=== PATIENT | female | born 1970 | race Caucasian/White ===

== ENCOUNTER 2020-01-03 08:43 | Outpatient (CLI) | payer BC, SELFPAY ==
[2020-01-03] MEDS: IRON SUCROSE COMPLEX 300 MG in SODIUM CHLORIDE 0.9% IV 250 ML 125 MG IVPB (09:07)
--- NOTE | 2020-01-03 10:12 | PC.NURSE ---
Pt watching TV without complaint. IV infusing without difficulty. present. Reminded to call with needs.
--- NOTE | 2020-01-03 10:42 | PCDIET ---
Pt complains of leg cramps. Up walking in halls with .
== END 2020-01-03 08:44 | disposition home or self-care (01) ==
LOC: CHSTREATRM 08:45
PROVIDERS: PCP Internal Medicine; Visit Provider Internal Medicine
DX: D50.9 Iron deficiency anemia, unspecified (principal)
CPT/HCPCS: 96365; 96366; J1756; J7050

== ENCOUNTER 2020-11-18 09:58 | Outpatient (CLI) | payer BC, SELFPAY ==
[2020-11-18] MEDS: IRON SUCROSE COMPLEX 300 MG in SODIUM CHLORIDE 0.9% IV 235 ML 125 MG IVPB (10:23)
== END 2020-11-18 09:59 | disposition home or self-care (01) ==
PROVIDERS: PCP Internal Medicine; Visit Provider Internal Medicine
DX: D50.9 Iron deficiency anemia, unspecified (principal)
CPT/HCPCS: 96365; 96366; J1756; J7050

== ENCOUNTER 2020-12-03 10:17 | Outpatient (CLI) | payer BC, SELFPAY ==
[2020-12-03] MEDS: IRON SUCROSE COMPLEX 300 MG in SODIUM CHLORIDE 0.9% IV 250 ML 125 MG IV PUSH (10:46)
[2020-12-03 10:52] VITALS: BP 112/60; PULSE 72; RESP 12; TEMP 36.2; O2SAT 97
--- NOTE | 2020-12-03 13:27 | PC.NURSE ---
Patient tolerated #2 of 3 Venofer infusion well. No concerns. #3 Dec 16. Safe exit of hospital.
== END 2020-12-03 10:18 | disposition home or self-care (01) ==
LOC: CHSTREATRM 10:19
PROVIDERS: PCP Internal Medicine; Visit Provider Internal Medicine
DX: D50.9 Iron deficiency anemia, unspecified (principal)
CPT/HCPCS: 96365; 96366; J1756; J7050

== ENCOUNTER 2021-01-05 10:27 | Outpatient (CLI) | payer BC, SELFPAY ==
[2021-01-05] MEDS: IRON SUCROSE COMPLEX 300 MG in SODIUM CHLORIDE 0.9% IV 250 ML 125 MG IVPB (11:00)
[2021-01-05 11:15] VITALS: BP 105/63; PULSE 88; RESP 16; TEMP 36; O2SAT 98
--- NOTE | 2021-01-05 12:55 | PC.NURSE ---
Tolerated #3 IV Venofer infusion well. No concerns about venofer infusion. Safe exit from floor. Going to register for ED r/t knee injury wants look at it from yesterday.
== END 2021-01-05 10:28 | disposition home or self-care (01) ==
LOC: CHSTREATRM 10:28
PROVIDERS: PCP Internal Medicine; Visit Provider Internal Medicine
DX: D50.9 Iron deficiency anemia, unspecified (principal)
CPT/HCPCS: 96365; 96366; J1756; J7050

== ENCOUNTER 2021-01-05 12:52 | Emergency (ER) | payer BC, SELFPAY ==
--- NOTE | ~2021-01-05 | XR_ITS ---
EXAMINATION: XR sacrum coccyx min 2V EXAM DATE: 01/05/2021 14:01 INDICATION: fall 2wks ago causing bilat post hip pain. TECHNIQUE: Frontal, inlet, lateral projections of the sacrum. Correlation made to a prior lumbar x-r ay from 2018, however portion of sacrum was not imaged on that exam. FINDINGS: Possible discontinuity of the sacrum anteriorly at the S4 segment as seen on the lateral pr ojection, possible distal sacral fracture. The sacral arcuate lines to appear intact and the sacroili ac joints are symmetric. IMPRESSION: Possible nondisplaced S4 segment fracture. Reviewed, dictated and finalized at location [facility]. [facility]
--- NOTE | ~2021-01-05 | XR_ITS ---
EXAMINATION: XR knee LT 2V EXAM DATE: 01/05/2021 14:04 INDICATION: Left knee pain ant and post injury. Initial encounter. TECHNIQUE: Frontal and lateral projections of the left knee. There is no prior study for comparison . FINDINGS: There are no acute left knee fractures or dislocations identified. There is no subcutaneou s gas. Small to moderate-sized joint effusion. There are no radiopaque foreign bodies. IMPRESSION: 1. XR knee LT 2V exam without acute osseous findings. 2. Small to moderate joint effusion. Reviewed, dictated and finalized at location [facility]
[2021-01-05 13:33] VITALS: BP 128/59; PULSE 86; RESP 20; TEMP 36.7; O2SAT 98
--- NOTE | 2021-01-05 13:38 | ED.LOWEXIN ---
HPI - Extremity Injury (Lower) General Chief Complaint: Extremity Injury, Lower <SALOMÓN Castañeda - Last Filed: 01/05/21 14:35> Stated Complaint: left knee injury <SALOMÓN Castañeda - Last Filed: 01/05/21 14:35> Source: patient and family <SALOMÓN Castañeda - Last Filed: 01/05/21 14:35> Mode of arrival: ambulatory <SALOMÓN Castañeda - Last Filed: 01/05/21 14:35> Limitations: no limitations <SALOMÓN Castañeda - Last Filed: 01/05/21 14:35> History of Present Illness HPI Narrative: According to patient a couple days ago while sitting on her bed she rolled off the bed and injured her left knee and buttocks. According to patient she has a history of rheumatoid arthritis she also has had a gastric bypass. Patient notes that she did take ibuprofen to try to relieve her pain with no relief. She also has had discomfort in her buttocks area due to her injury . Patient is able to ambulate on her left lower extremity with pain and has limited range of motion due to pain, Patient denies hitting her head, she also denies any lightheaded,vertigo,syncopal episode,or dizziness. She is being evaluated for mechanical fall injury to her knee and coccyx.Patient does get iron infusion at this facility. <SALOMÓN Castañeda - Last Filed: 01/05/21 14:35> MD complaint: knee injury (Left knee) <SALOMÓN Castañeda - Last Filed: 01/05/21 14:35> Related Data Home Medications: Home Medications Medication Instructions Recorded Confirmed alprazolam 1 mg PO TID PRN 01/05/21 01/05/21 amoxicillin-pot clavulanate 1 tablet PO BID 01/05/21 01/05/21 cephalexin 500 mg PO BID 01/05/21 01/05/21 gabapentin 400 mg PO HS 01/05/21 01/05/21 ondansetron HCl 4 mg PO Q8-10H PRN 01/05/21 01/05/21 prednisone 20 mg PO DAILY 01/05/21 01/05/21 zolpidem 10 mg PO HS 01/05/21 01/05/21 <ACACIA Castañeda - Last Filed: 01/05/21 14:35> Allergies/Adverse Reactions: Allergies Allergy/AdvReac Type Severity Reaction Status Date / Time acetaminophen Allergy Unknown Itching Verified 10/31/16 17:44 hydrocodone Allergy Unknown Itching Verified 10/31/16 17:44 Influenza Virus Vaccines Allergy Unknown Anaphylactic Verified 12/14/18 17:03 Shock Tetanus Vaccines and Toxoid Allergy Unknown Seizure Verified 01/05/21 13:47 codeine AdvReac Unknown Nausea and Verified 10/31/16 17:44 Vomiting NSAIDS (Non-Steroidal AdvReac Unknown Nausea and Verified 10/31/16 17:44 Anti-Inflamma Vomiting TB Allergy Anaphylaxis Uncoded 01/05/21 13:47 narcotics AdvReac Unknown Other Uncoded 12/14/18 17:03 <ACACIA Castañeda - Last Filed: 01/05/21 14:35> Review of Systems Review of Systems: All systems reviewed & are unremarkable except as noted in HPI and below (12 point sysrtem reviewed) <ACACIA Castañeda - Last Filed: 01/05/21 14:35> [facility] Social History Social History: Social History Gender identity (if verbalized by the patient): Female <SALOMÓN Castañeda - Last Filed: 01/05/21 14:35> Exam Const: General: cooperative, alert and awake <SALOMÓN Castañeda - Last Filed: 01/05/21 14:35> HENMT: Head: normal to inspection, No palpable skull fracture present, normocephalic, atraumatic, no contusions, no hematomas and no lacerations <SALOMÓN Castañeda - Last Filed: 01/05/21 14:35> Ears: hearing grossly normal bilaterally, external ears normal and TM's normal bilaterally <SALOMÓN Castañeda - Last Filed: 01/05/21 14:35> General nose exam: Normal external nose present and Normal nares present <SALOMÓN Castañeda - Last Filed: 01/05/21 14:35> Face and sinus: normal facial exam <SALOMÓN Castañeda - Last Filed: 01/05/21 14:35> Mouth: Yes Normal oral and palatal mucosa present <SALOMÓN Castañeda - Last Filed: 01/05/21 14:35> Teeth and gingiva: dentition normal <SALOMÓN Castañeda - Last Filed: 01/05/21 14:35> Throat: posterior
[2021-01-05 14:48] LABS: Hemoglobin 11.6 g/dL (12.0-15.0); Mean Corpuscular HGB Conc 31.4 g/dL (32.0-36.0); Mean Corpuscular Hemoglobin 29.1 pg (27.0-31.0); Mean Corpuscular Volume 92.7 fL (78.0-102.0); Platelet Count Result 293 K/mm3 (150-420); Red Blood Count 3.99 M/mm3 (4.20-5.40); Red Cell Distribution Width 13.4 % (11.6-14.4); White Blood Count 9.5 K/mm3 (4.8-10.8)
[2021-01-05 14:59] LABS: Alanine Aminotransferase 25 U/L (14-59); Albumin Level 3.1 g/dL (3.4-5.0); Alkaline Phosphatase 112 U/L (46-116); Anion Gap 9 mmol/L (8-16); Aspartate Amino Transferase 20 U/L (15-37); Bilirubin,Total 0.3 mg/dL (0.00-1.00); Blood Urea Nitrogen 6 mg/dL (7-18); CRP 8.6 mg/dL (0.0-0.9); Calcium 8.9 mg/dL (8.5-10.1); Carbon Dioxide 28 mmol/L (21-32); Chloride 99 mmol/L (98-108); Estimated CRCL calculation 59 ml/min; Estimated Glomerular Filt Rate > 60; Glucose 93 mg/dL (70-99); Osmolality Calculated 279 mOsm/kg (285-295); Potassium 3.8 mmol/L (3.5-5.1); Sodium 136 mmol/L (136-145); Total Protein 6.7 g/dL (6.4-8.2)
[2021-01-05 15:00] LABS: D Dimer 0.82 mg/L (0.19-0.50)
[2021-01-05 15:50] LABS: Erythrocyte Sedimentation Rate 46 mm/hr (0-15)
== END 2021-01-05 15:45 | disposition home or self-care (01) ==
PROVIDERS: Nurse Practitioner; Emergency Provider Emergency Medicine; PCP Internal Medicine
DX: S32.10XA Unspecified fracture of sacrum, initial encounter for closed fracture (principal); W06.XXXA Fall from bed, initial encounter
CPT/HCPCS: 36415; 72220; 73560; 80053; 85027; 85380; 85652; 86140; 99283; 99284

== ENCOUNTER 2023-02-13 09:06 | Emergency (ER) | payer BC, SELFPAY ==
[2023-02-13 09:12] VITALS: BP 132/89; PULSE 95; RESP 20; TEMP 37.3; O2SAT 100
--- NOTE | 2023-02-13 09:15 | ED.EXTPRO ---
HPI - Extremity Problem General Chief complaint: Extremity Problem,Nontraumatic Stated complaint: Right Ankle/ Heel Pain Source: patient and RN notes reviewed History of Present Illness HPI Narrative: 52-year-old female presents to urgent care with complaints of right lateral ankle pain and swelling. Patient states she was wearing her high tops last Monday at home while doing housework when she felt there was something in her shoe. Patient states she took off her shoe and head pain to her right lateral ankle. Patient states this pain has progressed and is now radiating up her right lateral leg. Patient states it felt like there was something in her shoe poking her at the time. Pt denies any specific injury, fevers, chills, calf pain, chest pain, or SOB. Denies any numbness or tingling. Pt has been taking Tylenol at home without relief. Related Data Home Medications Medication Instructions Recorded Confirmed pantoprazole 40 mg tablet,delayed mg PO 02/13/23 02/13/23 release tizanidine 4 mg tablet 4 mg PO DIRECTED 02/13/23 02/13/23 Allergies Allergy/AdvReac Type Severity Reaction Status Date / Time acetaminophen Allergy Unknown Itching Verified 02/13/23 09:19 hydrocodone Allergy Unknown Itching Verified 02/13/23 09:19 Influenza Virus Vaccines Allergy Unknown Anaphylactic Verified 02/13/23 09:19 Shock Tetanus Vaccines and Toxoid Allergy Unknown Seizure Verified 02/13/23 09:19 codeine AdvReac Unknown Nausea and Verified 02/13/23 09:19 Vomiting NSAIDS (Non-Steroidal AdvReac Unknown Nausea and Verified 02/13/23 09:19 Anti-Inflamma Vomiting TB Allergy Anaphylaxis Uncoded 01/05/21 13:47 narcotics AdvReac Unknown Other Uncoded 12/14/18 17:03 Review of Systems Review of Systems: CONSTITUTIONAL: Denies fever, chills, or sweats. EYES: Denies visual changes, redness, or discharge. ENT: Denies otalgia and sore throat CARDIOVASCULAR: Denies chest pain, palpitations, or edema. RESPIRATORY: Denies cough or dyspnea. GASTROINTESTINAL: Denies abdominal pain, nausea, vomiting, or diarrhea. GENITOURINARY: Denies dysuria or hematuria. SKIN: Denies rash or itching. MUSCULOSKELETAL: Right lateral ankle pain and swelling NEUROLOGIC: Denies headache, numbness, or weakness. Pertinent positives per HPI. PMFSH Social History Social History Gender identity (if verbalized by the patient): Female Comments At the time of my signature, I reviewed and agree with the nursing past medical, surgical, social, and family history. There is no relevant family history pertinent to the patient complaint. Exam Narrative: GENERAL: This is a well-nourished, well-developed patient, in no apparent distress. HEAD: normocephalic, atraumatic. EYES: PERRL. Sclera clear/white. Vision is grossly intact. EARS: External ears normal, auditory canals clear and without drainage, TMs normal without perforation. Hearing grossly intact. NOSE: External nose normal with no obvious nasal discharge, nares without redness, no rhinorrhea. THROAT: Mucous membranes moist, posterior pharynx clear. NECK: Neck supple, non-tender without lymphadenopathy, masses or thyromegaly. CARDIOVASCULAR: Regular rate and rhythm without murmurs, gallops, or rubs. RESPIRATORY: Clear to auscultation. Breath sounds equal bilaterally. No wheezes, rales, or rhonchi. GASTROINTESTINAL: Abdomen soft, non-tender, nondistended. Bowel sounds are active. No hepato-splenomegaly, or palpable masses. No guarding. SKIN: warm, intact with no suspicious lesions or rash, good texture and turgor. NEURO: awake, alert, and oriented to person, place and time. There were no obvious focal neurologic abnormalities. EXTREMITIES: Right sided edema and tenderness noted just inferior of the lateral maleolus. No erythema or rash noted. No bony tenderness noted. Course Course Level of Care: Express Care Visit Vital Signs Vital signs: Vital Signs Temperature 99.1 F 02/13/23 09:12 Pulse Rate 95
[2023-02-13 09:19] VITALS: BP 132/89; PULSE 95; RESP 20; TEMP 37.3; O2SAT 100
== END 2023-02-13 09:47 | disposition home or self-care (01) ==
PROVIDERS: Emergency Provider Nurse Practitioner Family; PCP Internal Medicine
DX: L03.115 Cellulitis of right lower limb (principal)
CPT/HCPCS: 99213; G0463